=== PATIENT | female | born 1985 | race Caucasian/White ===

== ENCOUNTER → 2020-02-05 10:54 | Outpatient (CLI) | payer BC, SELFPAY ==
--- NOTE | ~2020-02-05 | US_ITS ---
EXAMINATION: US pelvic complete w TV DATE: 02/05/2020 11:30 INDICATION: Spotting between periods and back pain TECHNIQUE: Multiple transabdominal and endovaginal sonographic images of the pelvis were obtained. COMPARISON: None. FINDINGS: The uterus measures 9.1 x 4.5 cm a 1.9 x 1.1 cm isoechoic area of the anterior lower uterin e segment likely relates to section scar. The endometrial complex measures 6 mm. The right o vary measures 3.6 x 2.5 x 2.8 cm. The left ovary measures 2.9 x 1.9 x 2.2 cm. There is normal vascula r flow in the ovaries. There is no free fluid in the pelvis. IMPRESSION: 1. No sonographic correlate for the patient's symptoms. Reviewed, dictated and finalized at location A.
== END ==
PROVIDERS: PCP Physician Assistant; Visit Provider Obstetrics & Gynecology
DX: N93.9 Abnormal uterine and vaginal bleeding, unspecified (principal)
CPT/HCPCS: 76830; 76856

== ENCOUNTER 2022-07-11 01:33 | Day surgery (SDC) | payer BC, SELFPAY ==
[2022-07-03 14:22] VITALS: BMI 19.8
--- NOTE | 2022-07-10 12:14 | PM.HPGS ---
History of Present Illness History of Present Illness Consent: Risks, benefits, and alternatives have been discussed and questions answered. Patient agrees to proceed with procedure. Chief complaint: family hx colon polyps, neoplasm screening Narrative: Radha Baca is a 36 year old female referred for colon cancer screening. She has a family history of polyps.Mother had precancerous polyps. Her maternal grandmother from colon cancer and had colon cancer in her 40s. Review of Systems Review of Systems: All systems reviewed & are unremarkable except as noted in HPI and below PMFSH Social History Social History Smoking status: Never smoker Alcohol intake: current Alcohol use details: 2 drinks monthly Substance use type: does not use Living arrangements: with family Spiritual care concerns: No Meds Home Medications and Allergies Home Medications Medication Instructions Recorded Confirmed Type dexmethylphenidate 25 mg 25 mg PO DAILY 07/03/22 07/03/22 History capsule,extended release [id number] Allergies Allergy/AdvReac Type Severity Reaction Status Date / Time No Known Allergies Allergy Verified 07/11/22 07:00 Exam Const: General: alert Orientation/consciousness: patient oriented x3 Resp: Auscultation: clear to auscultation bilaterally Cardio: Rhythm: regular rhythm GI: GI Palp: Yes Soft to palpation and No Tenderness to palpation present (GI) Neuro: General: patient oriented x3 Assessment and Plan Assessment and plan (1) Colon cancer screening: Code(s): Z12.11 - Encounter for screening for malignant neoplasm of colon Status: Acute Assessment and Plan: Colonoscopy with possible biopsy or polypectomy or cautery or injection of substances.
[2022-07-11 07:02] VITALS: BP 108/68; PULSE 105; RESP 18; TEMP 36.4; O2SAT 100
[2022-07-11] MEDS: LACTATED RINGERS 1,000 ML 150 ML IV CONT (07:04)
--- NOTE | 2022-07-11 07:36 | P.PNAN_ITS ---
Anes - Initial Pre Proc Eval Procedure: Operation Date: 07/11/22 08:00 Proposed Procedures p Screening Colonoscopy - Luis Rosario MD Date/Time: 07/11/22 07:36 Surgeon: Luis Rosario MD Pre Op Diagnosis: family hx colon polyps, neoplasm screening Patient Data Age: 36 Gender: F Height: 1.63 m Weight: 52.5 kg Last Vital Signs Temp 97.6 F 07/11/22 07:02 Pulse 105 H 07/11/22 07:02 Resp 18 07/11/22 07:02 BP 108/68 07/11/22 07:02 Pulse Ox 100 07/11/22 07:02 O2 Del Method Room Air 07/11/22 07:02 Allergies Allergy/AdvReac Type Severity Reaction Status Date / Time No Known Allergies Allergy Verified 07/11/22 07:00 Home Medications Medication Instructions Recorded Confirmed Type dexmethylphenidate 25 mg 25 mg PO DAILY 07/03/22 07/11/22 History capsule,extended release [id number] Patient hx anesthesia problems: none Family hx anesthesia problems: none Results Review: All pre-operative results and documents have been reviewed as part of the pre- operative evaluation. [facility] Social History Social History Smoking status: Never smoker Alcohol intake: current Alcohol use details: 2 drinks monthly Substance use type: does not use Living arrangements: with family Spiritual care concerns: No Anes - Eval Final PreProcedure Day of Procedure 07/11/22 07:36 Patient weight: normal Heart: regular rate and rhythm Lungs: clear to auscultation Airway: Mallampati scale class II Neurological: alert and oriented Last oral intake: >/= 8 hours ASA classification: II Emergent: no Anesthetic plan: proceed Anesthesia type and monitoring: general GIVS and standard monitoring Results Review: All pre-operative results and documents have been reviewed as part of the pre- operative evaluation. Informed Consent: The patient's anesthetic plan and its attendant risks and benefits were discussed with the patient/family/POA. Questions were solicited and answers provided to the satisfaction of the patient/family/POA.
[2022-07-11 08:14] VITALS: BP 95/62; PULSE 80; RESP 21; O2SAT 95
[2022-07-11 08:24] VITALS: BP 95/57; PULSE 80; RESP 26; O2SAT 95
[2022-07-11 08:34] VITALS: BP 101/73; PULSE 83; RESP 18; O2SAT 99
== END 2022-07-11 08:40 | disposition home or self-care (01) ==
PROVIDERS: PCP Family Medicine; Visit Provider Internal Medicine Gastroenterology
PROC: 0DJD8ZZ Inspection of Lower Intestinal Tract, Via Natural or Artificial Opening Endoscopic (ICD-10-PCS; CPT 45378; principal; 2022-07-11 08:00)
DX: Z12.11 Encounter for screening for malignant neoplasm of colon (principal); K64.8 Other hemorrhoids; Z80.0 Family history of malignant neoplasm of digestive organs; Z83.71 Family history of colonic polyps
CPT/HCPCS: 45378; J2704; J7120